=== PATIENT | male | born 1985 | race Caucasian/White ===

== ENCOUNTER 2017-02-03 12:35 | Emergency (ER) | payer SELFPAY ==
--- NOTE | 2017-02-03 13:48 | RAD ---
INDICATION: Date of the lateral ankle and fifth metatarsal after rolling injury playing soccer COMPARISON: None. TECHNIQUE: 3 views of the left ankle and 3 views of the left foot were obtained. FINDINGS: The well corticated bones exhibit normal alignment. Joint spaces appear maintained. No fracture is seen. IMPRESSION: NORMAL RADIOGRAPH OF THE LEFT FOOT AND ANKLE. If the patient's symptoms persist, follow-up imaging is recommended.
--- NOTE | 2017-02-03 14:11 | UC ---
Tristen Young Angela, scribed for Mario Martinez MD on 02/03/17 at 1336 . Lower Extremity/Ankle HPI - HPI Summary HPI Summary: In Room Note: This pt is a 31 y/o male presenting to [facility] c/o left foot and ankle pain s/p soccer inversion injury today. Pt reports that while playing soccer today he collided with another player and rolled his left ankle and foot. He denies hearing any pops. Pt has not injured this foot before. He denies head strike, headache, back pain, any other injuries. No PMHx. Pt works in construction. MDs Note: Vital signs are stable, afebrile. BP 135/86; 8/10 pain. Nonsmoker. Visit history : non contributory to present complaint. On no BP meds. Nurses Note: pt rolled his lt foot/ankle while he colided with another player while playing soccer. this injury happened about 1130 this am. - History of Current Complaint Chief Complaint: UCLowerExtremity Stated Complaint: ANKLE INJURY Time Seen by Provider: 02/03/17 13:19 Hx Obtained From: Patient Onset/Duration: Sudden Onset - s/p soccer injury Pain Intensity: 8 Pain Scale Used: 0-10 Numeric Aggravating Factor(s): Ambulation Alleviating Factor(s): Nothing - Allergies/Home Medications Allergies/Adverse Reactions: Allergies Allergy/AdvReac Type Severity Reaction Status Date / Time No Known Allergies Allergy Verified 02/03/17 12:44 Home Medications: Home Medications NK [No Home Medications Reported] 02/03/17 [History Confirmed 02/03/17] PMH/Surg Hx/FS Hx/Imm Hx Other Endocrine History: DENIES: diabetes Other Cardiovascular History: DENIES: HTN - Surgical History Surgical History: None - Family History Known Family History: Positive: Cardiac Disease - father, paternal aunt - Social History Occupation: Employed Full-time - construction Alcohol Use: Occasionally Substance Use Type: None Smoking Status (MU): Never Smoked Tobacco Review of Systems Constitutional: Negative Skin: Negative Eyes: Negative ENT: Negative Respiratory: Negative Cardiovascular: Negative Gastrointestinal: Negative Genitourinary: Negative Motor: Decreased ROM - of left foot/ankle Neurovascular: Negative Musculoskeletal: Other: - left foot and ankle pain Neurological: Negative All Other Systems Reviewed And Are Negative: Yes Physical Exam Triage Information Reviewed: Yes Vital Signs: Initial Vital Signs Temp 99.1 F 02/03/17 12:39 Pulse 60 02/03/17 12:39 Resp 18 02/03/17 12:39 BP 135/86 02/03/17 12:39 Pulse Ox 100 02/03/17 12:39 Vital Signs Reviewed: Yes - Additional Comments The patient is well-nourished in no acute distress. The skin is warm and dry and skin color reflects adequate perfusion. HEENT: The head is normocephalic and atraumatic. The pupils are equal and reactive. The conjunctivae are clear and without drainage. Nares are patent and without drainage. Mouth reveals moist mucous membranes and the throat is without erythema and exudate. The external ears are intact. The ear canals are patent and without drainage. The tympanic membranes are intact. Neck is supple with full range of motion and non-tender. Respiratory: Chest is non-tender. Lungs are clear to auscultation and breath sounds are symmetrical and equal. Cardiovascular: Hear is regular rate and rhythm. There is no murmur or rub auscultated. There is no peripheral edema and pulses are symmetrical and equal. Abdomen: The abdomen is soft and non-tender. There are normal bowel sounds heard in all four quadrants. Musculoskeletal: There is no back pain noted. There is good capillary refill. There is no peripheral edema or calf tenderness elicited. LEFT LOWER EXTREMITY: THERE IS MILD TENDERNESS TO PALPATION BELOW THE MEDIAL MALLEOLUS. THERE ARE NO STEP-OFFS. ACHILLES TENDON IS INTACT. THERE IS NEGATIVE ANTERIOR DRAWER SIGN. THERE IS PAIN ON THE BASE THE FIFTH METATARSAL. THERE IS MILD TENDERNESS OVER THE INSERTION OF THE TENDONS ON THE DORSUM OF THE LEFT FOOT. FUNGAL INFECTION UNDER THE NAILS OF THE SECOND, THIRD, AND FOURTH TOES OF THE RIGHT FOOT. Neurological: Patient is alert and oriented to person, place and time. The patient has symmetrical motor strength in all four extremities. Psychiatric: The patient has an appropriate affect and does not exhibit any anxiety or depression. Diagnostics - Radiology Left Foot XR Xray Interpretation: No Acute Changes - iMPRESSION: Normal radiograph of the left foot and ankle. ED physician has reviewed this radiology report and agrees. Radiology Interpretation Completed By: Radiologist Left Ankle XR Xray Interpretation: No Acute Changes - IMPRESSION: Normal radiograph of the left foot and ankle. ED physician has reviewed this radiology report and agrees. Radiology Interpretation Completed By: Radiologist Lower Extremity Course/Dx - Course Course Of Treatment: On exam, LEFT LOWER EXTREMITY. THERE IS MILD TENDERNESS TO PALPATION BELOW THE MEDIAL MALLEOLUS. THERE ARE NO STEP-OFFS. ACHILLES TENDON IS INTACT. THERE IS NEGATIVE ANTERIOR DRAWER SIGN. THERE IS PAIN ON THE BASE THE FIFTH METATARSAL. THERE IS MILD TENDERNESS OVER THE INSERTION OF THE TENDONS ON THE DORSUM OF THE LEFT FOOT. FUNGAL INFECTION UNDER THE NAILS OF THE SECOND, THIRD, AND FOURTH TOES OF THE RIGHT FOOT. XR of left ankle and foot are both negative for fractures. MDM: Pt has a sprain of the lateral aspect of left foot and the medial aspect of the left ankle. He has crutches, janeen, and compression pads at home. I instructed him about restricted activity. He also has a fungal infection under the nails of the 2nd, 3rd, 4th toes of the right foot. Medications have been included in the original chart and reviewed. Patient is Urgent/Emergent. BP elevated due to current condition w/o HTN in PMH. - Differential Dx/Diagnosis Differential Diagnosis/HQI/PQRI: Other - Sprain vs fracture of foot and ankle, left Provider Diagnoses: Sprain of the ankle and foot, left Discharge - Discharge Plan Condition: Stable Disposition: HOME Patient Education Materials: Ankle Sprain (ED), Foot Sprain (ED) Referrals: No Primary Care Phys,NOPCP [Primary Care Provider] - Additional Instructions: WE DISCUSSED: 1. You have not broken any bones. You have a bad sprain of your foot and ankle. 2. Warm moist heat in the morning; ice to area during the day. 3. Restrict activity until you are pain free with weight bearing. Use janeen, compression, elevation, crutches. 4. ACETAMINOPHEN 500MG AND IBUPROFEN 600MG TOGETHER FOR DISCOMFORT UP TO FOUR TIMES A DAY FOR PAIN. 5. Re-check at any time for increase in pain or disability. The documentation as recorded by the Tristen taylor Angela accurately reflects the service I personally performed and the decisions made by me, Mario Martinez MD.
== END 2017-02-03 14:11 | disposition home or self-care (01) ==
LOC: UCEAST 12:35
DX: S93.402A Sprain of unspecified ligament of left ankle, initial encounter (principal); W03.XXXA Other fall on same level due to collision with another person, initial encounter; Y93.66 Activity, soccer
CPT/HCPCS: 99201; G0463

== ENCOUNTER 2018-12-21 15:44 | Emergency (ER) | payer BC ==
--- NOTE | 2018-12-21 15:49 | ED ---
Upper Extremity Pain - HPI Summary HPI Summary: 33 yo male presents with right thumb injury. 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 He looked down and noticed a deformity in his thumb. He is right handed. His friend with him brought him to the ED. He denies numbness or tingling. Pain is minimal at this time. - History of Current Complaint Chief Complaint: EDExtremityUpper Stated Complaint: RIGHT THUMB DISLOCATION PER PT Time Seen by Provider: 12/21/18 15:49 Hx Obtained From: Patient Mechanism Of Injury: Blunt Trauma Severity Initially: Mild Severity Currently: Mild - Allergies/Home Medications Allergies/Adverse Reactions: Allergies Allergy/AdvReac Type Severity Reaction Status Date / Time No Known Allergies Allergy Verified 12/21/18 15:48 PMH/Surg Hx/FS Hx/Imm Hx Previously Healthy: Yes Endocrine/Hematology History: Denies: Hx Blood Disorders, Hx Diabetes, Hx Anemia Cardiovascular History: Denies: Hx Atrial Fibrillation, Hx Coronary Artery Disease Respiratory History: Denies: Hx Asthma, Hx Chronic Obstructive Pulmonary Disease (COPD) History: Denies: Hx Acute Renal Failure, Hx Dialysis Musculoskeletal History: Denies: Hx Fibromyalgia, Hx Gout Neurological History: Denies: Hx CVA, Hx Headaches, Hx Migraine Psychiatric History: Denies: Hx Anxiety, Hx Depression - Surgical History Surgical History: None - Immunization History Immunizations Up to Date: Yes Infectious Disease History: No Infectious Disease History: Denies: Traveled Outside the [place] in Last 30 Days - Family History Known Family History: Positive: Cardiac Disease - father, paternal aunt - Social History Occupation: Employed Full-time Lives: With Family Alcohol Use: Occasionally Substance Use Type: Reports: None Smoking Status (MU): Never Smoked Tobacco Review of Systems Constitutional: Negative Eyes: Negative ENT: Negative Cardiovascular: Negative Respiratory: Negative Gastrointestinal: Negative Genitourinary: Negative Musculoskeletal: Other - Right thumb pain Skin: Negative Neurological: Negative Psychological: Normal All Other Systems Reviewed And Are Negative: Yes Physical Exam - Summary Physical Exam Summary: GENERAL: NAD. WDWN. No pain distress. SKIN: No rashes, sores, lesions, or open wounds. CHEST: No accessory muscle use. Breathing comfortably and in no distress. CV: Pulses intact radial and ulnar. Cap refill <2seconds MSK: RIGHT THUMB: Obvious bony deformity and decreased ROM. Mild TTP. NEURO: Alert. Sensations intact hand and all fingers. PSYCH: Age appropriate behavior. Triage Information Reviewed: Yes Vital Signs On Initial Exam: Initial Vitals Temp Pulse Resp BP Pulse Ox 98.9 F 94 16 151/95 99 12/21/18 15:46 12/21/18 15:46 12/21/18 15:46 12/21/18 15:46 12/21/18 15:46 Vital Signs Reviewed: Yes Procedures - Joint Reduction Right Joint Reduction Site: other - Thumb Specify Other Joint Reduced: Thumb Conscious Sedation: No Reduction Attempts: 3 Pre-Procedure NV Exam: Yes Post Joint Reduction Film: joint not reduced Diagnostics - Vital Signs Vital Signs Temp Pulse Resp BP Pulse Ox 12/21/18 15:46 98.9 F 94 16 151/95 99 - Laboratory Lab Statement: Any lab studies that have been ordered have been reviewed, and results considered in the medical decision making process. - Radiology Thumb Radiology Interpretation Completed By: Radiologist Summary of Radiographic Findings: IMPRESSION: Dislocation of the right thumb metacarpal phalangeal joint. Re-Evaluation - Re-Evaluation First Eval Re-Evaluation Time: 16:38 Change: Unchanged Comment: Declined pain medication. Attempted to reduce thumb - unsuccessful x3. Pt tolerated well Second Eval Re-Evaluation Time: 17:45 Change: Unchanged Comment: Irma tried to reduce with lidocaine digital block. No reduction. Third Eval Change: Unchanged Comment: Dr. Mancuso gave valium, toradol, and marcaine. Reduction attempts failed. Requests conscious sedation. Pt agreeable to this Course/Dx - Course Course Of Treatment: XR as above. Pt declined pain medication prior to reduction attempt. I tried to reduce the thumb x3 without success. I discussed the case with Dr. Montoya and she also tried to reduce the thumb without success. She performed a lidocaine digital block and attempted reduction again without success. Dr. Mancuso of Orthopedics was consulted and she was unable to reduce the digit. Dr. Mancuso gave pt valium and toradol and performed her own digital block with bupivacaine - reduction attempt unsuccessful. At this time she discussed conscious sedation with the pt and he was agreeable to this. Dr. Caputo of anesthesia, along with Dr. Mancuso, administered propofol and attempted reduction of the digit with success. Dr. Mancuso recommends transfer of the pt for surgical reduction as she suspects there may be a tendon or ligament preventing reduction and she is not comfortable performing the surgery required. I contaced [facility] transfer center and spoke with Dr. Laguna and he recommended pt be placed in a splint and he will f/u in the office on Sunday. I called Dr. Mancuso and made her aware - she recommends placing pt in splint of thumb spica and she will contact [facility]'s hand surgeons to see if pt can be placed on the OR schedule for Sunday or office appt on Sunday. I discussed this with pt and his family with him - he was agreeable to this. He was placed in a thumb spica splint and advised to rest, ice, and take ibuprofen as directed for discomfort. Call Ortho office sunday morning if he has not heard from them for an appt. - Diagnoses Provider Diagnoses: Dislocation of right thumb - Physician Notifications Discussed Care of Patient With: Dr. Laguna at [facility] - Discussed case. Recommends placing in splint for comfort and f/u with him in [place] on Sunday. Time Discussed With Above Provider: 19:48 Instructed by Provider To: Have Pt Call For Appt. Discharge - Sign-Out/Discharge Documenting (check all that apply): Patient Departure Patient Received Moderate/Deep Sedation with Procedure: Yes - Propofol - Discharge Plan Condition: Stable Disposition: HOME Prescriptions: RX: Ibuprofen TAB* [Motrin TAB* 800 MG] 800 mg PO Q8H PRN #30 tab PRN Reason: Pain Patient Education Materials: Moderate Sedation (ED), Finger Dislocation (ED) Referrals: No Primary Care Phys,NOPCP [Medical Doctor] - Chan Sun MD [Medical Doctor] - 2 Days Lucy Velez MD [Medical Doctor] - 2 Days Additional Instructions: If you develop a fever, shortness of breath, chest pain, new or worsening symptoms - please call your PCP or go to the ED immediately. Your blood pressure was slightly elevated at todays visit. Please see your primary provider within 4 weeks for recheck and re-evaluation. 1) Use the thumb splint as much as possible for protection and comfort 2) May take ibuprofen as directed 3) Dr. Mancuso (Orthopedic doctor) saw you in the ER today and will be discussing your case with [facility]'s hand surgeon to see you on Sunday. If you have not heard from the by Sunday, please call their office at the number below to inquire. - Billing Disposition and Condition Condition: STABLE Disposition: Home
[2018-12-21] MEDS ORDERED: Morphine 4 MG/ML VIAL (1 ml) 4 MG/ML VIAL IM ONE (16:16)
[2018-12-21] MEDS ORDERED: Lidocaine 1% MDV 20 ML INJ ONE (17:04)
[2018-12-21] MEDS ORDERED: Ketorolac *IM* INJ* 60 MG/2 ML VIAL IM ONE (17:45)
[2018-12-21] MEDS ORDERED: Bupivacaine 0.5%* 50 ML VIAL INJ ONE (17:50)
[2018-12-21] MEDS ORDERED: Diazepam TAB(*) 5 MG PO ONE (17:50)
--- NOTE | 2018-12-21 17:52 | ED ---
Progress - Progress Note Progress Note: This patient is a 33 y/o M who arrives to [facility] with CC of R thumb dislocation. I assisted Nabeel Cherry NP, with the joint reduction but was unsuccessful. Therefore, I discussed patient case with domingo Correa, who will come to reduce the joint. Re-Evaluation - Re-Evaluation First Eval Re-Evaluation Time: 16:38 Change: Unchanged Comment: Declined pain medication. Attempted to reduce thumb - unsuccessful x3. Pt tolerated well Second Eval Re-Evaluation Time: 17:45 Change: Unchanged Comment: Irma tried to reduce with lidocaine digital block. No reduction. Third Eval Change: Unchanged Comment: Dr. Mancuso gave valium, toradol, and marcaine. Reduction attempts failed. Requests conscious sedation. Pt agreeable to this Course/Dx - Course Course Of Treatment: This patient is a 33 y/o M who arrives to [facility] with CC of R thumb dislocation. I assisted Nabeel Cherry NP, with the joint reduction but was unsuccessful. Therefore, I discussed patient case with domingo Correa, who will come to reduce the joint. - Diagnoses Provider Diagnoses: Dislocation of right thumb - Provider Notifications Discussed Care Of Patient With: Amara Mancuso Time Discussed With Above Provider: 17:30 Instructed by Provider To: Other - Discussed patient case with domingo Correa , who will reduce the joint with local anesthesia. Discharge - Sign-Out/Discharge Documenting (check all that apply): Patient Departure - Discharge Patient Received Moderate/Deep Sedation with Procedure: Yes - Discharge Plan Condition: Stable Disposition: TRANS HIGHER LVL OF CARE FAC Patient Education Materials: Moderate Sedation (ED) Referrals: No Primary Care Phys,NOPCP [Medical Doctor] - - Billing Disposition and Condition Condition: STABLE Disposition: Trans Higher Lvl of Care Fac - Attestation Statements Document Initiated by Scribe: Yes Documenting Scribe: Evangelist Sue Provider For Whom Jonna is Documenting (Include Credential): Edgardo Montoya MD Scribe Attestation: Evangelist Young, scribed for Edgardo Montoya MD on 12/21/18 at 1926. Scribe Documentation Reviewed: Yes Provider Attestation: The documentation as recorded by the Evangelist taylor accurately reflects the service I personally performed and the decisions made by me, Edgardo Montoya MD Status of Scribe Document: Viewed Procedures - Joint Reduction Right Joint Reduction Site: other - Thumb Specify Other Joint Reduced: R thumb Conscious Sedation: No Reduction Attempts: 3 Pre-Procedure NV Exam: Yes Post Joint Reduction Film: joint not reduced
[2018-12-21] MEDS ORDERED: Lidocaine 1% INJ* 10 MG/ML 30 ML SDV INJ ONE (18:00)
[2018-12-21] MEDS ORDERED: Bupivacaine 0.5% PF 10 ML VIAL INJ ONE (19:00)
[2018-12-21] MEDS ORDERED: Propofol* 10 MG/ML 20 ML BTL ONE (19:24)
[2018-12-21 20:18] VITALS: BP 145/96
--- NOTE | 2018-12-22 00:27 | CONS ---
AMENDED REPORT NOW INCLUDES DATE OF CONSULT CONSULTATION REPORT: DATE OF CONSULT: 12/21/18 CHIEF COMPLAINT: Right thumb pain. 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 He last ate around 2 o'clock, he states that he had immediate pain. He has not had any specific numbness and tingling. The ER did try to reduce this and had difficulty and therefore consulted me. He declined medication initially. PAST MEDICAL HISTORY: Negative. PAST SURGICAL HISTORY: He has had oral surgery. MEDICATIONS: None. ALLERGIES: None. FAMILY HISTORY: Significant for cardiac disease in his father and paternal aunt. His father was at 42. SOCIAL HISTORY: He is right hand dominant, works as a vela. Denies tobacco. Drinks alcohol on occasion. He lives locally and it is birthday today. REVIEW OF SYSTEMS: A 14-point review of systems was reviewed with the patient, significant only for the above complaint. Otherwise, remainder of systems is negative. PHYSICAL EXAM: Vitals: Temperature 98.9, pulse is 94, respiratory rate 18, O2 saturation 99% on room air, blood pressure 151/95. He is in no acute distress, well developed and well nourished. He is oriented x3. He has pleasant mood and normal affect. Good balance and coordination of his other extremities. Examination of right thumb demonstrates his skin is intact. At that time, he had diminished sensation because of the previous digital block. He has numbness and deformity of the thumb. He has brisk cap refill. He has pain with range of motion of his thumb. 2+ radial pulse. He has full sensation and intact otherwise to other digits. DIAGNOSTIC STUDIES: X-rays were reviewed that demonstrates a dorsal lateral dislocation of the MCP of the thumb. ASSESSMENT AND PLAN: He has a dorsolateral dislocation of the thumb. We are going to try reduction. I did offer him a local block and we used Marcaine more proximal to try to numb the entire thumb, which he had a satisfactory block , but the thumb was not able to be reduced. We then tried again under sedation with the help of anesthesia and the thumb was unable to be reduced. I did discuss with my hand colleague, I am concerned that he has an entrapped volar plate versus a tendon. At this point, I am not comfortable operating on a right hand dominant vela's thumb. I have offered him either transfer to another facility to take care of this surgically tonight or I offered him a splint or call my hand colleague this week. The patient will review the options and the patient will address this as he sees fit. I did discuss with my colleague, Dr. Sun, who will help arrange follow up this coming week. [id number]/[facility] #: [id number] PAM
== END 2018-12-21 20:17 | disposition home or self-care (01) ==
LOC: ED 15:44
DX: S63.104A Unspecified dislocation of right thumb, initial encounter (principal); W51.XXXA Accidental striking against or bumped into by another person, initial encounter; Y93.66 Activity, soccer; Y92.9 Unspecified place or not applicable
CPT/HCPCS: 96372; 99282; A9270-GY; J1885; J2270; J2704; J3490

== ENCOUNTER 2018-12-23 09:22 | Day surgery (SDC) | payer BC ==
[2018-12-23] MEDS ORDERED: fentaNYL* 50 MCG/ML 2 ML VIAL (100 MCG VIAL) ONE (10:54)
[2018-12-23] MEDS ORDERED: Lidocaine 2% PF * 5 ML VIAL ONE (10:54)
[2018-12-23] MEDS ORDERED: Midazolam* 1 MG/ML 5 ML VIAL (5 MG) ONE (10:54)
[2018-12-23] MEDS ORDERED: Propofol* 10 MG/ML 20 ML BTL ONE (10:55)
[2018-12-23] MEDS ORDERED: Buffered Lidocaine 1% SYRIN* 1 ML/SYRINGE INTRADERM ONE (11:48)
[2018-12-23] MEDS ORDERED: Lactated Ringers 1000 ML Bag* 1,000 ML IV SCH (12:00)
[2018-12-23] MEDS ORDERED: DiMENhydriNATE IV* 50 MG/ML VIAL IV PUSH PRN (13:21)
[2018-12-23] MEDS ORDERED: Acetaminophen TAB* 325 MG PO PRN (13:21)
[2018-12-23] MEDS ORDERED: fentaNYL* 50 MCG/ML 2 ML VIAL (100 MCG VIAL) IV PRN (13:21)
[2018-12-23] MEDS ORDERED: oxyCODONE/Acetamin 5/325 MG* TAB PO PRN (13:21)
[2018-12-23] MEDS ORDERED: Naloxone* 0.4 MG/ML 1 ML VIAL IV PRN (13:21)
[2018-12-23] MEDS ORDERED: Ketorolac INJ* 30 MG/ML 1 ML VIAL IV PRN (13:21)
[2018-12-23] MEDS ORDERED: Bupivacaine 0.25% SDV PF* 10 ML VIAL INJ ONE (13:30)
[2018-12-23] MEDS ORDERED: Dexamethasone IV* 4 MG/ML 1 ML (4 MG) ONE (14:03)
[2018-12-23] MEDS ORDERED: Ondansetron INJ* 2 MG/ML VIAL ONE (14:03)
[2018-12-23] MEDS ORDERED: Ketorolac INJ* 30 MG/ML 1 ML VIAL ONE (16:25)
[2018-12-23 16:47] VITALS: BP 113/67
--- NOTE | 2018-12-23 20:44 | OP ---
DATE OF OPERATION: 12/23/18 - [facility] DATE OF : 87 SURGEON: Chan Sun MD AIR TRAFFIC SUPERVISOR: None. ANESTHESIOLOGIST: Dr. Mejía. ANESTHESIA: General. PRE-OP DIAGNOSIS: Right thumb metacarpophalangeal joint irreducible dislocation. POST-OP DIAGNOSIS: Right thumb metacarpophalangeal joint irreducible dislocation. OPERATIVE PROCEDURE: Open reduction of the right thumb metacarpophalangeal joint dorsal dislocation. INDICATIONS: Chaka is 33. He dislocated the joint on Sunday evening playing soccer. It was irreducible. He was brought in for surgery today to reduce the joint. He understands the risk of instability despite doing surgery necessitating further surgery such as collateral ligament repair, reconstruction. He wants to proceed with surgery. He also understands the risks of stiffness and arthritis. ESTIMATED BLOOD LOSS: 2 mL. COMPLICATIONS: None. FINDINGS: See above and below. DESCRIPTION OF PROCEDURE: Chaka was seen in the preoperative holding area. The correct site, side, and procedure were identified. We came back to the operating room where the arm was prepped and draped in the usual fashion and a time-out was performed. The arm was exsanguinated with the Esmarch and the tourniquet was inflated to 250 mmHg. I made a 3-cm longitudinal incision over the dorsum of the right thumb metacarpophalangeal joint. Dissection was carried down. Two tendons were noted there. I split the interval between the 2 tendons. The capsule overlying the joint was opened. The dislocation was noted what was interposed with the volar plate, which had avulsed off of the metacarpal neck, had severely interposed itself. I did do a little bit of release and then I was able to hyperextend the thumb and used the [place] elevator to push that ligament back palmarly and then the joint clunked back into place. After that, it was very stable. There was some laxity in the collateral ligament as to be expected , but everything was looking very nice. I confirmed everything with mini C-arm fluoroscopy. I then closed the capsule with 4-0 PDS. I closed my split in the tendon with 4-0 Prolene with the knots buried. The skin was closed with 4-0 nylon. 0.25% plain Marcaine was infiltrated proximally as a digital block. The wound was dressed with Xeroform, 4x4s, sterile Webril, and then a thumb spica splint was applied with the MP joint slightly flexed. He was taken to the recovery room in stable condition. [id number]/[facility] #: [id number] PAM
== END 2018-12-23 16:47 | disposition home or self-care (01) ==
LOC: OR 09:22
PROVIDERS: ATTEND Orthopaedic Surgery Hand Surgery
DX: S63.114A Dislocation of metacarpophalangeal joint of right thumb, initial encounter (principal); X58.XXXA Exposure to other specified factors, initial encounter; Y93.66 Activity, soccer; Y92.322 Soccer field as the place of occurrence of the external cause
CPT/HCPCS: 76000; J1100; J1885; J2250; J2405; J2704; J3010; J3490